=== PATIENT | female | born 1955 | race Caucasian/White ===

== ENCOUNTER 2020-03-10 13:49 | Inpatient (IN) | payer OTHER ==
[~2020-03-10] VITALS: Ht 157.4 cm; Wt 60.4 kg
[2020-03-10 13:59] VITALS: BP 127/74
[2020-03-10 14:58] LABS: BASO % 0.7 % (0.0-1.0); EOS # 0.1 10*3/uL (0.0-0.4); EOS % 5.1 % (1.0-4.0); HEMATOCRIT 28.7 % (37.0-47.0); LYMPH # 0.6 10*3/uL (1.3-4.4); LYMPH % 22.6 % (27.0-41.0); MEAN CELL VOLUME 82.9 fl (81.0-99.0); MEAN CORPUSCULAR HGB 25.4 pg (27.0-31.0); MEAN CORPUSCULAR HGB CONC 30.7 g/dl (33.0-37.0); MEAN PLATELET VOLUME 10.8 fl (9.6-12.3); MONO # 0.3 10*3/uL (0.1-1.0); MONO % 9.5 % (3.0-9.0); NEUT # 1.7 10*3/uL (2.3-7.9); NEUT % 61.7 % (47.0-73.0); PLATELET COUNT AUTOMATED 185 10*3/uL (130-400); RED BLOOD COUNT 3.46 10*6/uL (4.10-5.10); RED CELL DISTRI WIDTH 17.1 % (0-14.5); WHITE BLOOD COUNT 2.7 10*3/uL (4.8-10.8)
[2020-03-10 15:11] LABS: ACT PARTIAL THROMBO TIME 26.8 SECONDS (20.0-32.1); INTERNATIONAL NORM RATIO 1.1 (2.0-3.5)
[2020-03-10 15:14] LABS: ALBUMIN 2.9 gm/dl (3.1-4.5); ALKALINE PHOSPHATASE 135 U/L (45-117); BUN 21 mg/dl (7-24); CHLORIDE 108 mmol/L (98-107); CREATININE 0.73 mg/dL (0.55-1.02); LIPASE 392 U/L (73-393); POTASSIUM 3.5 mmol/L (3.5-5.1); SGOT/AST 33 IU/L (3-35); SGPT/ALT 20 U/L (12-78); SODIUM 138 mmol/L (136-145); TOTAL PROTEIN 8.1 gm/dL (6.4-8.2)
[2020-03-10 15:20] LABS: TROPONIN I < 0.015 ng/ml (<0.045)
[2020-03-10 17:30] VITALS: BP 107/58
[2020-03-10] MEDS ORDERED: IBUPROFEN600 MG PO (17:39)
[2020-03-10] MEDS ORDERED: FLUOXETINE40 MG PO (17:40)
[2020-03-10] MEDS ORDERED: ALDACTONE25 M1 PO (17:43)
[2020-03-10] MEDS ORDERED: PROTONIX TR40 M1 PO (17:44)
[2020-03-10] MEDS ORDERED: AUGMENTIN 875-875 MG PO (17:47)
[2020-03-10] MEDS ORDERED: LOSARTAN POTASS50 M1 PO (17:47)
[2020-03-10] MEDS ORDERED: ROPINIROLE HYDRO3 MG PO (17:53)
[2020-03-10 18:42] LABS: URINE AMPHETAMINES < 1000 (1000ng/ml); URINE BARBITURATES < 200 (200ng/ml); URINE BENZODIAZEPINES < 200 (200ng/ml); URINE CANNABINOIDS (THC) < 50 (50ng/ml); URINE COCAINE < 300 (300ng/ml); URINE METHADONE < 300 (300ng/ml); URINE OPIATES < 300 (300ng/ml)
[2020-03-10 18:45] LABS: URINE PHENCYCLIDINE < 25 (25ng/ml)
[2020-03-10 20:00] VITALS: BP 136/72
[2020-03-11] VITALS (12 sets, daily range): BP systolic 104–179; BP diastolic 54–108
[2020-03-11 15:37] LABS: BASO % 0.3 % (0.0-1.0); EOS % 0.3 % (1.0-4.0); HEMATOCRIT 27.6 % (37.0-47.0); LYMPH # 0.3 10*3/uL (1.3-4.4); LYMPH % 9.2 % (27.0-41.0); MEAN CORPUSCULAR HGB 25.6 pg (27.0-31.0); MEAN CORPUSCULAR HGB CONC 29.7 g/dl (33.0-37.0); MEAN PLATELET VOLUME 10.9 fl (9.6-12.3); MONO % 0.7 % (3.0-9.0); NEUT # 2.7 10*3/uL (2.3-7.9); NEUT % 89.2 % (47.0-73.0); PLATELET COUNT AUTOMATED 130 10*3/uL (130-400); RED CELL DISTRI WIDTH 17.5 % (0-14.5)
[2020-03-11 15:53] LABS: ALBUMIN 2.6 gm/dl (3.1-4.5); ALKALINE PHOSPHATASE 111 U/L (45-117); BUN 17 mg/dl (7-24); CHLORIDE 114 mmol/L (98-107); CREATININE 0.72 mg/dL (0.55-1.02); POTASSIUM 3.7 mmol/L (3.5-5.1); SGOT/AST 27 IU/L (3-35); SGPT/ALT 17 U/L (12-78); SODIUM 142 mmol/L (136-145); TOTAL PROTEIN 7.1 gm/dL (6.4-8.2)
[2020-03-11 16:01] LABS: MEAN CELL VOLUME 86.3 fl (81.0-99.0)
[2020-03-12] VITALS: BP 112/63
[2020-03-12 06:53] LABS: HEMATOCRIT 27.3 % (37.0-47.0); LYMPH # 0.3 10*3/uL (1.3-4.4); LYMPH % 7.4 % (27.0-41.0); MEAN CELL VOLUME 86.9 fl (81.0-99.0); MEAN CORPUSCULAR HGB 25.5 pg (27.0-31.0); MEAN CORPUSCULAR HGB CONC 29.3 g/dl (33.0-37.0); MEAN PLATELET VOLUME 11.3 fl (9.6-12.3); MONO # 0.2 10*3/uL (0.1-1.0); NEUT # 3.1 10*3/uL (2.3-7.9); NEUT % 86.3 % (47.0-73.0); PLATELET COUNT AUTOMATED 139 10*3/uL (130-400); RED BLOOD COUNT 3.14 10*6/uL (4.10-5.10); RED CELL DISTRI WIDTH 17.4 % (0-14.5); WHITE BLOOD COUNT 3.6 10*3/uL (4.8-10.8)
[2020-03-12 07:14] LABS: BUN 21 mg/dl (7-24); CREATININE 0.88 mg/dL (0.55-1.02); POTASSIUM 3.8 mmol/L (3.5-5.1); SODIUM 142 mmol/L (136-145)
[2020-03-12 07:20] LABS: CHLORIDE 113 mmol/L (98-107)
[2020-03-12 08:00] VITALS: BP 96/57
[2020-03-12 12:00] VITALS: BP 101/62
[2020-03-12 16:00] VITALS: BP 101/53
[2020-03-12 20:00] VITALS: BP 109/62
[2020-03-13 08:00] VITALS: BP 106/61
[2020-03-13 12:00] VITALS: BP 110/69
[2020-03-13 12:11] LABS: ACID FAST SPEC PROCESSING Tissue Grinding (.)
[2020-03-13 12:11] LABS: ACID FAST SPEC PROCESSING Tissue Grinding (.)
[2020-03-13] MEDS ORDERED: TRAMADOL HCL50 MG PO (15:40)
[2020-03-13] MEDS ORDERED: ASPIRIN CHILDRE81 MG PO (15:40)
[2020-03-13 16:00] VITALS: BP 145/82
[2020-03-13 20:00] VITALS: BP 121/68
[2020-03-14] VITALS: BP 119/69
[2020-03-14 08:00] VITALS: BP 119/74
[2020-03-14 12:00] VITALS: BP 129/74
[2020-03-14 16:00] VITALS: BP 105/62
[2020-03-14 20:00] VITALS: BP 117/80
[2020-03-15] VITALS: BP 117/77
[2020-03-15 06:07] LABS: BUN 12 mg/dl (7-24); CHLORIDE 108 mmol/L (98-107); CREATININE 0.69 mg/dL (0.55-1.02); POTASSIUM 3.5 mmol/L (3.5-5.1); SODIUM 139 mmol/L (136-145)
[2020-03-15 08:00] VITALS: BP 118/71
[2020-03-15 12:00] VITALS: BP 123/70
[2020-03-15 16:00] VITALS: BP 102/58
[2020-03-15 20:00] VITALS: BP 133/73
[2020-03-16] VITALS: BP 120/65
[2020-03-16 08:00] VITALS: BP 124/70
[2020-03-16 12:00] VITALS: BP 131/75
[2020-03-16 16:00] VITALS: BP 120/87; BP 136/69
[2020-03-16 20:00] VITALS: BP 122/69
[2020-03-17] VITALS: BP 126/72
[2020-03-17 08:00] VITALS: BP 116/68
[2020-03-17 12:00] VITALS: BP 116/83
[2020-03-17 16:00] VITALS: BP 112/66
[2020-03-17 20:00] VITALS: BP 132/76
[2020-03-18] VITALS: BP 135/84
[2020-03-18 08:00] VITALS: BP 126/84
[2020-03-18 12:00] VITALS: BP 122/60
[2020-03-18] MEDS ORDERED: HYDROCODONE-AC1 EAC1 PO (13:02)
[2020-03-18 16:00] VITALS: BP 152/67
== END 2020-03-18 18:46 | disposition other institution (70) | DRG 854 ==
LOC: ED 13:49 → EDHOLD 15:47 → 5E 15:47 → EDHOLD 16:04 → 5E 16:07
PROVIDERS: Emergency Medicine; Podiatrist; Student in an Organized Health Care Education/Training Program; ADMIT Student in an Organized Health Care Education/Training Program
PROC: 0L8W0ZZ Division of Left Foot Tendon, Open Approach (ICD-10-PCS; principal; 2020-03-11)
PROC: 01NG0ZZ Release Tibial Nerve, Open Approach (ICD-10-PCS; principal; 2020-03-11)
PROC: 0QBK0ZZ Excision of Left Fibula, Open Approach (ICD-10-PCS; principal; 2020-03-11)
PROC: 0SS Lower Joints, Reposition (ICD-10-PCS; principal; 2020-03-11)
PROC: 0QBM0ZZ Excision of Left Tarsal, Open Approach (ICD-10-PCS; principal; 2020-03-11)
PROC: 0QBM0ZX Excision of Left Tarsal, Open Approach, Diagnostic (ICD-10-PCS; principal; 2020-03-11)
PROC: 0K8 Muscles, Division (ICD-10-PCS; principal; 2020-03-11)
PROC: 0SS Lower Joints, Reposition (ICD-10-PCS; principal; 2020-03-11)
PROC: 0QBK0ZX Excision of Left Fibula, Open Approach, Diagnostic (ICD-10-PCS; principal; 2020-03-11)
PROC: 0JNR0ZZ Release Left Foot Subcutaneous Tissue and Fascia, Open Approach (ICD-10-PCS; principal; 2020-03-11)
DX: A41.9 Sepsis, unspecified organism (principal); E44.0 Moderate protein-calorie malnutrition; R65.20 Severe sepsis without septic shock; G57.52 Tarsal tunnel syndrome, left lower limb; L97.529 Non-pressure chronic ulcer of other part of left foot with unspecified severity; M24.572 Contracture, left ankle; S91.302A Unspecified open wound, left foot, initial encounter; R73.9 Hyperglycemia, unspecified; E87.8 Other disorders of electrolyte and fluid balance, not elsewhere classified; D64.9 Anemia, unspecified; K21.9 Gastro-esophageal reflux disease without esophagitis; G25.81 Restless legs syndrome; M14.672 Charcot's joint, left ankle and foot; D70.9 Neutropenia, unspecified; B95.61 Methicillin susceptible Staphylococcus aureus infection as the cause of diseases classified elsewhere; B96.89 Other specified bacterial agents as the cause of diseases classified elsewhere; F41.9 Anxiety disorder, unspecified; S82.892A Other fracture of left lower leg, initial encounter for closed fracture; Z03.818 Encounter for observation for suspected exposure to other biological agents ruled out; S93.05XA Dislocation of left ankle joint, initial encounter; X58.XXXA Exposure to other specified factors, initial encounter; Y93.89 Activity, other specified; Y92.89 Other specified places as the place of occurrence of the external cause; Y99.8 Other external cause status; Z80.9 Family history of malignant neoplasm, unspecified; Z82.61 Family history of arthritis; Z88.5 Allergy status to narcotic agent; Z88.8 Allergy status to other drugs, medicaments and biological substances; Z68.24 Body mass index [BMI] 24.0-24.9, adult

== ENCOUNTER 2020-04-01 07:46 | Inpatient (IN) | payer OTHER, MEDICAID ==
[~2020-04-01] VITALS: Ht 157.4 cm; Wt 64.9 kg
[2020-04-01] VITALS (54 sets, daily range): BP systolic 76–113; BP diastolic 40–84
[~2020-04-01 07:46] MED LIST: ALDACTONE25 M1 PO; ASPIRIN CHILDRE81 MG PO; AUGMENTIN 875-875 MG PO; DULCOLAX10 M1 R; FEROSUL325 MG PO; FLUCONAZOLE100 MG PO; FLUOXETINE40 MG PO; HYDROCODONE-AC1 EAC1 PO; IBUPROFEN600 MG PO; LOSARTAN POTASS50 M1 PO; PROTONIX TR40 M1 PO; ROPINIROLE HYDRO3 MG PO; TRAMADOL HCL50 MG PO
[2020-04-01 09:17] LABS: BASO % 0.7 % (0.0-1.0); EOS # 0.3 10*3/uL (0.0-0.4); EOS % 11.3 % (1.0-4.0); HEMATOCRIT 27.8 % (37.0-47.0); LYMPH # 0.7 10*3/uL (1.3-4.4); MEAN CELL VOLUME 82.2 fl (81.0-99.0); MEAN CORPUSCULAR HGB 25.4 pg (27.0-31.0); MEAN CORPUSCULAR HGB CONC 30.9 g/dl (33.0-37.0); MONO # 0.2 10*3/uL (0.1-1.0); MONO % 5.7 % (3.0-9.0); NEUT # 1.8 10*3/uL (2.3-7.9); PLATELET COUNT AUTOMATED 186 10*3/uL (130-400); RED BLOOD COUNT 3.38 10*6/uL (4.10-5.10); RED CELL DISTRI WIDTH 18.1 % (0-14.5)
--- NOTE | 2020-04-01 10:32 | NUR ---
FIRST UNIT OF PACKED RBC INFUSION STARTED.
[2020-04-01 13:36] LABS: HEMATOCRIT 22.1 % (37.0-47.0)
--- NOTE | 2020-04-01 13:40 | NUR ---
Anibal Daniels is aware of H & H results along with Dr Jackson. Patient ordered another unit of blood.
--- NOTE | 2020-04-01 14:03 | NUR ---
PHYSICAL THERAPY Physical therapy order received. PT evaluation attempted. Patient not in room from surgery. Will try PT evaluation at a later time/date. Thank you. Rebeca Carias,PT,DPT.
--- NOTE | 2020-04-01 14:03 | NUR ---
OT NOTE Occupational therapy order received and chart reviewed. Patient not in room at this time. Per nursing, she is still in surgery. Will follow up with patient at a later date for completion of an OT eval. Thank you. Jessie Fay OTR/L
--- NOTE | 2020-04-01 14:45 | NUR ---
A 64, admitted to ICCU, under the services of BRANDEN Rose DO with a diagnosis of HYPOTENSION. Chief complaint is POST-OP LEFT ANKLE. Patient arrived via stretcher from OP/ADMIT. Monitor applied. Initial assessment completed. Vital signs taken and recorded. BRANDEN ROSE DO notified of admission to the unit. Orders received. See assessment for past medical history, medications and allergies. Patient and/or family oriented to unit. [facility] ICCU visitation policy reviewed. Clothing/patient valuable form completed. OSMAR DUMONT
[2020-04-01] MEDS ORDERED: NORCO 5-325 TA1 EACH PO (15:42)
[2020-04-01] MEDS ORDERED: MILK OF MA400 MG/51 PO (15:45)
--- NOTE | 2020-04-01 15:47 | NUR ---
PHYSICAL THERAPY Patient transferred to ICCU for hypovolemic shock following Left TTC fusion. PT requiring new PT orders to complete PT evaluation, due to change in level of care. Recommend new PT orders when patient is appropriate for skilled PT evaluation. Thank you. Rebeca Carias,PT,DPT.
--- NOTE | 2020-04-01 15:49 | NUR ---
OT NOTE Occupational therapy order received. Patient had a left TTC fusion this date and was transferred to the ICCU following a hypovolemic shock. OTR will need new OT orders due to a change in level of care. Please send OT orders when patient is appropriate for an OT evaluation. Thank you. Jessie Fay, OTR/L
[2020-04-01 19:10] LABS: MEAN CORPUSCULAR HGB 27.9 pg (27.0-31.0); MEAN CORPUSCULAR HGB CONC 32.3 g/dl (33.0-37.0); MEAN PLATELET VOLUME 11.5 fl (9.6-12.3); RED BLOOD COUNT 3.59 10*6/uL (4.10-5.10); RED CELL DISTRI WIDTH 16.8 % (0-14.5); WHITE BLOOD COUNT 11.4 10*3/uL (4.8-10.8)
[2020-04-01 19:24] LABS: IRON 231 ug/dL (50-170); TOTAL IRON BINDING CAPACITY 346 ug/dl (250-450)
[2020-04-01 19:39] LABS: MEAN CELL VOLUME 86.4 fl (81.0-99.0); PLATELET COUNT AUTOMATED 273 10*3/uL (130-400)
[2020-04-01 19:54] LABS: TOTAL CELLS COUNTED 100 #CELLS
[2020-04-01 19:55] LABS: BURR CELLS FEW; OVALOCYTES FEW; PLATELET SUFFICIENCY NORMAL (NORMAL)
--- NOTE | 2020-04-01 20:32 | NUR ---
MEDICATED WITH NORCO PER PRN ORDER FOR C/O PAIN.
--- NOTE | 2020-04-01 20:40 | NUR ---
19:50 PT INSTRUCTED ON USE OF INCENTIVE SPIROMETRY. PT DEMONSTRATED PROPER TECHNIQUE. PT ABLE TO ACHIEVE 2 L. PT INSTRUCTED TO USE Q 1-2 HR W/A.
--- NOTE | 2020-04-01 22:10 | NUR ---
PT STATES THAT NORCO IS INEFFECTIVE. DR BENJAMIN NOTIFIED AND NEW ORDER RECEIVED.
--- NOTE | 2020-04-01 22:25 | NUR ---
MEDICATED WITH MORPHINE PER PRN ORDER FOR C/O PAIN.
--- NOTE | 2020-04-01 22:50 | NUR ---
MORPHINE EFFECTIVE FOR PAIN.
[2020-04-02] VITALS (41 sets, daily range): BP systolic 90–122; BP diastolic 44–78
[2020-04-02 06:09] LABS: BASO % 0.2 % (0.0-1.0); HEMATOCRIT 26.4 % (37.0-47.0); LYMPH # 0.7 10*3/uL (1.3-4.4); LYMPH % 10.9 % (27.0-41.0); MEAN CELL VOLUME 86.3 fl (81.0-99.0); MEAN CORPUSCULAR HGB 27.1 pg (27.0-31.0); MEAN CORPUSCULAR HGB CONC 31.4 g/dl (33.0-37.0); MEAN PLATELET VOLUME 11.8 fl (9.6-12.3); MONO # 0.4 10*3/uL (0.1-1.0); MONO % 6.1 % (3.0-9.0); NEUT # 5.3 10*3/uL (2.3-7.9); NEUT % 82.3 % (47.0-73.0); PLATELET COUNT AUTOMATED 232 10*3/uL (130-400); RED BLOOD COUNT 3.06 10*6/uL (4.10-5.10); RED CELL DISTRI WIDTH 16.9 % (0-14.5); WHITE BLOOD COUNT 6.4 10*3/uL (4.8-10.8)
[2020-04-02 06:24] LABS: ALBUMIN 2.6 gm/dl (3.1-4.5); ALKALINE PHOSPHATASE 73 U/L (45-117); BUN 22 mg/dl (7-24); CHLORIDE 104 mmol/L (98-107); CHOLESTEROL 116 mg/dL (<200); CREATININE 1.03 mg/dL (0.55-1.02); POTASSIUM 4.5 mmol/L (3.5-5.1); SGOT/AST 17 IU/L (3-35); SGPT/ALT 13 U/L (12-78); SODIUM 133 mmol/L (136-145); TOTAL PROTEIN 6.3 gm/dL (6.4-8.2); TRIGLYCERIDES 88 mg/dl (<150); VLDL CHOLESTEROL 18 mg/dL (6-40)
[2020-04-02 06:29] LABS: FREE T4 0.86 ng/dl (0.76-1.46); HDL CHOLESTEROL 40 mg/dl (40-60); LDL CHOLESTEROL 58 mg/dL (9-159)
[2020-04-02 06:42] LABS: ACT PARTIAL THROMBO TIME 27.9 SECONDS (20.0-32.1); INTERNATIONAL NORM RATIO 1.1 (2.0-3.5)
[2020-04-02 06:57] LABS: VITAMIN D, 25-HYDROXY 29.1 ng/mL (30-100)
--- NOTE | 2020-04-02 07:59 | NUR ---
PHYSICAL THERAPY Screen recieved, orders recieved before pt transfered to ICU. New orders are required for PT. Thank you. Edu Chiang SPT Rebeca Carias PT
--- NOTE | 2020-04-02 08:04 | NUR ---
OT NOTE Nursing screen received and chart reviewed. Patient admitted to the ICCU following TTC fusion. Please send OT orders when patient is medically appropriate for an OT evaluation. Thank you. Jessie Fay, OTR/L
--- NOTE | 2020-04-02 08:05 | NUR ---
LEVAPHED TITRATED OFF
[2020-04-02 08:08] LABS: HEPATITIS B SURFACE AB Non Reactive (.); HEPATITIS C AB <0.1 (0.0-0.9)
--- NOTE | 2020-04-02 08:10 | NUR ---
PHYSICAL THERAPY Screen received, orders received before pt transfered to ICCU. New orders are required for PT. Thank you. Edu Chiang SPT Rebeca Carias PT
--- NOTE | 2020-04-02 08:24 | NUR ---
PATIENT PRESENTS FROM [facility]. PRECERT IS REQUIRED FOR RETURN.
--- NOTE | 2020-04-02 09:10 | NUR ---
JOSEFINA FOR RIGHT LEG PAIN
--- NOTE | 2020-04-02 09:29 | NUR ---
Denise from [facility] stating patient will require PT and OT with a precert to return, however, she will NOT require another Covid test. She will be quarantined for 14 days.
--- NOTE | 2020-04-02 10:10 | NUR ---
NORCO EFFECTIVE, PT SLEEPING QUIETLY, AOOEARS TO BE PAIN FREE
--- NOTE | 2020-04-02 11:00 | NUR ---
Sand Shoveler in to see patient. She is short term at [facility] and plans to return there. train planner following.
--- NOTE | 2020-04-02 11:20 | NUR ---
Occupational Therapy evaluation completed on ICCU with full evaluation to follow. Recommend occupational therapy per plan of care and SNF upon discharge. Thank you for this referral. Jessie Fay OTR/L
--- NOTE | 2020-04-02 11:25 | NUR ---
PHYSICAL THERAPY Physical Therapy evaluation completed on ICCU with full evaluation to follow. Moderate complexity PT evaluation per chart review and evaluation, [id number]. Recommend physical therapy per plan of care and SNF upon discharge. Thank you for this referral. Rebeca Carias,PT,DPT
--- NOTE | 2020-04-02 12:09 | NUR ---
UP TO RECLINER BY PT PT ENCOURAGED TO CALL FOR HELP TO USE BSC PT INSISTS ON JUST USING A DIAPER, "ITS EASIER NOT TO GET UP " PROPER TOILETING ENCOURAGED
--- NOTE | 2020-04-02 14:22 | NUR ---
PHYSICAL THERAPY Physical therapy treatment complete, 14:22-14:40, Therapeutic activity. Total treatment time: 18 minutes. Patient alert, oriented, and agreeable to skilled PT services. PT, OT, nursing present throughout treatment. Patient performed sit to stand transfer from recliner chair with ModA and FWW with good compliance of NWB status to LEFT LE. Patient unable to hop on Right LE with FWW. Stand pivot transfer on RLE with scooting technique performed to transfer from recliner to sitting EOB. Patient rested sitting EOB for ~2 minutes. Patient assisted with sliding/scoot technique from bed to bedside commode with arm lowered. Patient demonstrated Good transfer technique from bed to BSC with ModA for safety, verbal/tactile cueing. Patient demontrated Fair transfer technique from BSC to return to seated position in bed. Difficulty with bed being slightly higher than BSC, causing an ascending transfer. Increased time required to complete transfer. ModA for safety and to maintain NWB status of Left LE. Patient returned to supine position in bed, comfortable, call aguirre within reach. PT/ Nursing assisted patient to scoot higher in bed. Continued education to not allow any pressure through Left LE, especially when scooting higher in bed. Patient verbalized understanding. Recommend SNF at discharge. Thank you. Rebeca Carias,PT,DPT
--- NOTE | 2020-04-02 14:25 | NUR ---
OT NOTE Patient was agreeable to continued OT treatment this afternoon to maximize safety and independence with ADLs and transfers. Patient seated in the recliner upon arrival. Nursing and physical therapy present for treatment. Patient seated donned back gown with Min A due to multiple monitor lines. Patient performed sit/stand from recliner with Mod A with good carryover of LLE NWB and safe hand placement on WW. Patient performed stand-pivot on the RLE to bedside with Mod A. Patient completed lateral scoot transfer onto drop-arm BSC with good carryover with Mod A and mod cues for sequencing of task. Patient on BSC returned ascending onto bed with fair- completion. Patient requiring Mod A to complete with assist maintaining LLE NWB. Patient requiring Mod A for safety and 2 person assist during transfers due to needing to maintain LLE NWB. Patient would benefit from continued OT treatment to maximize safety and independence with ADLs, transfers, and mobility. Continue with POC to SNF as able. Jessie Fay, OTR/L
--- NOTE | 2020-04-02 15:36 | NUR ---
ULTRAM FOR LEFT LEG PAIN
--- NOTE | 2020-04-02 16:18 | NUR ---
NASAL SPRAY FOR DRY SINUSES/CONGESTION
--- NOTE | 2020-04-02 16:30 | NUR ---
RELIEF WITH NASAL SPRAY
--- NOTE | 2020-04-02 17:15 | NUR ---
JOSEFINA FOR RETURN OF LEG PAIN
--- NOTE | 2020-04-02 18:45 | NUR ---
MORPHINE 1 MG FOR RETURN OF SURGICAL LEG PAIN
--- NOTE | 2020-04-02 18:47 | NUR ---
CHART CHECK COMPLETE.
--- NOTE | 2020-04-02 18:52 | NUR ---
MORPHINE STARTING TO BE EFFECTIVE
--- NOTE | 2020-04-02 19:18 | NUR ---
DR BENJAMIN NOTIFIED OF PT CRYING AND ROCKING IN BED, SAYING THE PAIN IN HER LEG IS UNBEARABLE, WANTS MORPHINE TO HAVE MORE TIME TO WORK
--- NOTE | 2020-04-02 19:25 | NUR ---
DR BENJAMIN CALLED AGAIN TO COME SEE PT SHE IS IN UNBEARABLE PAIN AND CRYING AND ROCKING
--- NOTE | 2020-04-02 19:32 | NUR ---
DR BENJAMIN HERE TO SEE PT. PT CONTINUES TO ROCK, CRY, AND MOAN IN PAIN. VSS.
--- NOTE | 2020-04-02 19:50 | NUR ---
EARLY DOSE OF REQUIP W/ TYLENOL ORDERED, AND ADDITIONAL DOSE OF MORPHINE ORDERED FOR "DEEP EXCRUTIATING PAIN" IN LT LEG 06/13.
--- NOTE | 2020-04-02 19:58 | NUR ---
PT HAS STOPPED CRYING AND ROCKING IN BED. HER BODY APPEARS RELAXED AND HER EYES ARE CLOSED BUT SHE AWAKENS VERY QUICKLY TO MY VOICE AND STATES "IT'S STARTING TO WORK. THANK YOU VERY MUCH. IT'S NOT ALL GONE YET BUT MUCH BETTER." MEDICATIONS EFFECTIVE.
--- NOTE | 2020-04-02 20:41 | NUR ---
AWAKE, ASSISTED PT TO POSITION OF COMFORT. SHE IS VERY CALM, TALKING TO SOMEONE ON HER CELLPHONE AT THIS TIME.
--- NOTE | 2020-04-02 21:00 | NUR ---
AWAKE, MOANING, MOVING AROUND BED AGAIN. STATES PAIN MOVED TO SIDE OF LT LEG, "NOT QUITE BAD BUT JUST COMES ON LIKE A FREIGHT TRAIN." MEDICATED WITH ULTRAM AND RESTORIL ORDERED.
--- NOTE | 2020-04-02 21:52 | NUR ---
PT LAYING ON HER SIDE AGAIN. OCCASIONALLY MOVES & MOANS. DR BENJAMIN CHECKS ON PT'S PAIN LEVEL AND WE DISCUSSED MEDICATIONS GIVEN WITH TIMES AND EFFECTIVENESS. DIRECTED TO CALL IF PT NEEDS FUTHER PAIN MANAGEMENT.
--- NOTE | 2020-04-02 22:00 | NUR ---
RUTH CARE FOR INCONTINENCE OF URINE. PT UPDATED ON PLAN OF CARE. HER BP AT THIS TIME IS 10/55 WITH MAP OF 74.
--- NOTE | 2020-04-02 22:01 | NUR ---
ADDENDUM: BP WAS 108/55 (NOT )
--- NOTE | 2020-04-02 23:00 | NUR ---
PT CALLING OUT AND ASKING IF IT IS TIME FOR ANYTHING. MEDICATED WITH NORCO FOR RECURRING POST OP LEG PAIN AND ZOFRAN IV TO PREVENT NAUSEA.
--- NOTE | 2020-04-02 23:52 | NUR ---
PRN MEDICATIONS EFFECTIVE. PT CALMLY LAYING ON HER LT SIDE, DOZING AT INTERVALS, AWAKENS EASILY TO VERBAL AND TACTILE STIMULI, RESPIRATIONS EVEN AND UNLABORED. WILL CONTINUE TO MONITOR PAIN CONTROL AND VS.
[2020-04-03] VITALS (20 sets, daily range): BP systolic 89–107; BP diastolic 50–64
--- NOTE | 2020-04-03 00:45 | NUR ---
PT CRIED OUT TO SEE IF TIME FOR PAIN MEDICATION. 10/10 PAIN IN KNEE AND OUTER LT LEG DESPITE REPOSITIONING. RUTH CARE AGAIN DONE FOR INCONTINENCE OF URINE. MEDICATED WITH MORPHINE ORDERED.
--- NOTE | 2020-04-03 01:00 | NUR ---
MORPHINE EFFECTIVE. PT LAYING ON HER SIDE, BODY RELAXED, RESPIRATIONS EVEN & UNLABORED. CALL LIGHT IN REACH. BED EXIT ALARM ON.
--- NOTE | 2020-04-03 02:50 | NUR ---
PT AWAKE, CRYING AND MOANING, SITTING UP AND RUBBING AT DIFFERENT AREAS OF HER LT LEG. MEDICATED WITH ULTRAM ORDERED.
--- NOTE | 2020-04-03 03:15 | NUR ---
PT CRYING OUT, UTILIZES CALL LIGHT, ASKING ME TO CALL THE DOCTOR TO GET HER PAIN MEDICATION. DR BENJAMIN NOTIFIED OF PT COMPLAINTS THAT ULTRAM NOT EFFECTIVE AND REQUESTING "PAIN SHOT". DR BENJAMIN NOTIFIED.
--- NOTE | 2020-04-03 03:38 | NUR ---
VS AND ASSESSMENT COMPLETED AT 0330 PRIOR TO ADMINISTRATION OF MORPHINE ORDERED AT 0335. WAS EFFECTIVE WITHIN MINUTES PER PT.
--- NOTE | 2020-04-03 05:30 | NUR ---
JEWETT FOR RECURRING LT LEG POST OP PAIN.
--- NOTE | 2020-04-03 05:43 | NUR ---
RUTH CARE AND UNDERPADS CHANGED FOR MOD AMT OF URINE IN BRIEF. PT HAS DECLINED BATH THIS EVENING DUE TO PAIN CONTROL.
[2020-04-03 06:09] LABS: ALBUMIN 2.3 gm/dl (3.1-4.5); ALKALINE PHOSPHATASE 61 U/L (45-117); BUN 24 mg/dl (7-24); CHLORIDE 108 mmol/L (98-107); CREATININE 0.88 mg/dL (0.55-1.02); POTASSIUM 3.6 mmol/L (3.5-5.1); SGOT/AST 17 IU/L (3-35); SGPT/ALT 12 U/L (12-78); SODIUM 137 mmol/L (136-145); TOTAL PROTEIN 5.7 gm/dL (6.4-8.2)
--- NOTE | 2020-04-03 06:09 | NUR ---
NORCO EFFECTIVE FOR POST OP LEG DISCOMFORT THUS FAR.
[2020-04-03 06:24] LABS: MEAN CELL VOLUME 87.7 fl (81.0-99.0); MEAN CORPUSCULAR HGB CONC 31.9 g/dl (33.0-37.0); MEAN PLATELET VOLUME 12.3 fl (9.6-12.3); RED BLOOD COUNT 2.11 10*6/uL (4.10-5.10); RED CELL DISTRI WIDTH 17.4 % (0-14.5)
[2020-04-03 06:31] LABS: HEMATOCRIT 18.5 % (37.0-47.0)
[2020-04-03 06:32] LABS: PLATELET COUNT AUTOMATED 83 10*3/uL (130-400)
--- NOTE | 2020-04-03 06:34 | NUR ---
DR BENJAMIN NOTIFIED OF HGB 5.9 AND HCT 18.5.
--- NOTE | 2020-04-03 06:37 | NUR ---
DR BENJAMIN TO CALL PODIATRY PHONE TO NOTIFY OF DROP IN HGB AND HCT.
--- NOTE | 2020-04-03 07:12 | NUR ---
4TH RBC STARTED
[2020-04-03 07:19] LABS: BASOPHILS 1 % (0-1); OVALOCYTES FEW; PLATELET SUFFICIENCY LOW (NORMAL); TOTAL CELLS COUNTED 100 #CELLS
--- NOTE | 2020-04-03 07:38 | NUR ---
TOLERATING TRANSFUSION WELL, RELATIVELY PAIN FREE, UNLESS THE LEFT LEG IS TOUCHED, ALERT AND ORIENTED, MEDIPORT SITE ASYMPT, ABD SOFT/NON DISTENDED RIGHT KNEE WITH CHRONIC ARTHRITIC DISCOMFORTS
--- NOTE | 2020-04-03 08:19 | NUR ---
US OF LEFT LEG COMPLETED, PT IN UNBEARABLE PAIN, CRYING, MORPHINE GIVEN
--- NOTE | 2020-04-03 08:30 | NUR ---
PAIN IN LEFT LEG HAS DIMINISHED BUT STILL THERE
--- NOTE | 2020-04-03 08:49 | NUR ---
ADDITIONAL 2 MG MORPHINE
--- NOTE | 2020-04-03 08:50 | NUR ---
OT NOTE Attempted to see pt this A.M. for OT session and upon arrival pt's nurse reported that pt is not appropriate for therapy at this time due to medical decline and pain level of 10/10 in LLE. Will check back with nurse at a later time/date and continue with POC as able. MARCUS Mcdonough/Tanja
--- NOTE | 2020-04-03 08:55 | NUR ---
PHYSICAL THERAPY Per discussion with ICCU Nurse, Patient experienced medical decline not appropriate for treatment at this time. Nurse advised Therapist to hold all treatment this date. Will continue per POC as able. Cristian Carlos ,GUEST SERVICES REPRESENTATIVE
--- NOTE | 2020-04-03 09:00 | NUR ---
THE EXTRA DOES OF MORPHINE HAS MADE PT PAIN FREE NOW
--- NOTE | 2020-04-03 10:13 | NUR ---
ULTRAM FOR THE STARTING OF THE RETURN OF SURGICAL PAIN
--- NOTE | 2020-04-03 11:00 | NUR ---
ULTRAM SOMEWHAT EFFECTIVE
[2020-04-03 11:01] LABS: HEMATOCRIT 21.2 % (37.0-47.0)
[2020-04-03 11:07] LABS: ACID FAST SPEC PROCESSING Tissue Grinding (.)
--- NOTE | 2020-04-03 11:25 | NUR ---
LEARNING TECHNOLOGIES SPECIALIST SPOKE WITH [facility]. THE PATIENT DOES NOT REQUIRE A COVID TO RETURN.
--- NOTE | 2020-04-03 12:00 | NUR ---
5TH UNIT OF RBCS STARTED
--- NOTE | 2020-04-03 12:00 | NUR ---
NO PT/OT TODAY PT IS NOT FEELING WELL
--- NOTE | 2020-04-03 12:00 | NUR ---
Spoke to hospitalist nurse director and ICCU nurse regarding COVID testing. COVID will need to be obtained at this time due to uncertainty of discharge plan.
--- NOTE | 2020-04-03 12:17 | NUR ---
DOCULAX GIVEN FOR CONSTIPATION PER CT
--- NOTE | 2020-04-03 12:23 | NUR ---
JOSEFINA FOR LEFT LEG PAIN
--- NOTE | 2020-04-03 13:17 | NUR ---
NORCO NOT COMPLETELY EFFECTIVE FOR PAIN RELIEF
--- NOTE | 2020-04-03 13:37 | NUR ---
MEDICATED PT PER PRN ORDER WITH MORPHINE FOR C/O LEFT LOWER LEG PAIN THAT RATES 8/10 ON PAIN SCALE.
--- NOTE | 2020-04-03 14:06 | NUR ---
MORPHINE MORE EFFECTIVE FOR PAIN RELIEF
--- NOTE | 2020-04-03 14:10 | NUR ---
5TH UNIT OF RBC HAS BEEN COMPLETED
--- NOTE | 2020-04-03 16:21 | NUR ---
OCCUPATIONAL THERAPY CO-SIGN I approve of the Occupational Therapy notes written above. BOBBY SUAZO, OTR/L
--- NOTE | 2020-04-03 16:30 | NUR ---
DR COUCH BACK IN TO CHECK ON PT, ADVISED OF REPEAT HH
--- NOTE | 2020-04-03 19:45 | NUR ---
PT RESTING IN BED. APPEARS COMFORTABLE. TALKING ON HER CELL PHONE. HER LT LEG REMAINS WRAPPED, THE APPEARANCE AND TEMPERATURE OF HER TOES UNCHANGED FROM LAST TWO NIGHT NIGHTS, CAPILLARY REFILL ALSO UNCHANGED.
--- NOTE | 2020-04-03 20:08 | NUR ---
MORPHINE GIVEN PER PT REQUEST FOR "ANKLE PAIN" 04/13.
--- NOTE | 2020-04-03 20:20 | NUR ---
PT CONTINUES TO TALK ON THE CELL PHONE. HOLDS "THUMBS UP" SIGN WHEN I ASKED IF MEDICATION WAS EFFECTIVE FOR PAIN.
--- NOTE | 2020-04-03 20:45 | NUR ---
PT STILL TALKING ON CELL PHONE. LT LEG REMAINS ELEVATED ON PILLOW. SCD FUNCTIONAL TO RT LEG.
--- NOTE | 2020-04-03 22:00 | NUR ---
ULTRAM AND RESTORIL FOR PAIN AND SLEEP GIVEN AT 2109 EFFECTIVE. PT DOZING. BODY RELAXED. RESPIRATIONS EVEN AND UNLABORED.
[2020-04-04] VITALS: BP 104/60
--- NOTE | 2020-04-04 03:44 | NUR ---
PT SLEEPS WITH EVEN, UNLABORED RESPIRATIONS. BODY RELAXED.
[2020-04-04 04:00] VITALS: BP 103/70
--- NOTE | 2020-04-04 04:19 | NUR ---
PT MEDICATED WITH MORPHINE PER PT REQUEST FOR "ANKLE PAIN" 03/13. VS TAKEN AND RECORDED. DECLINES BATH. PLEASANT, CALM. STATES "OH, I HAVE BEEN SLEEPING SO GOOD. I REALLY NEEDED THAT.". NO CHANGE IN APPEARANCE/SIZE/TEMPERATURE OF LT LEG & TOES. CAST REMAINS INTACT. CALL LIGHT IN REACH.
--- NOTE | 2020-04-04 04:30 | NUR ---
PT STATES RELIEF IN PAIN.... MORPHINE EFFECTIVE.
[2020-04-04 05:58] LABS: BASO % 0.3 % (0.0-1.0); EOS # 0.2 10*3/uL (0.0-0.4); EOS % 6.2 % (1.0-4.0); HEMATOCRIT 25.5 % (37.0-47.0); LYMPH # 0.5 10*3/uL (1.3-4.4); LYMPH % 17.3 % (27.0-41.0); MEAN CELL VOLUME 87.6 fl (81.0-99.0); MEAN CORPUSCULAR HGB 27.8 pg (27.0-31.0); MEAN CORPUSCULAR HGB CONC 31.8 g/dl (33.0-37.0); MEAN PLATELET VOLUME 11.7 fl (9.6-12.3); MONO # 0.3 10*3/uL (0.1-1.0); MONO % 8.2 % (3.0-9.0); NEUT # 2.1 10*3/uL (2.3-7.9); NEUT % 67.7 % (47.0-73.0); PLATELET COUNT AUTOMATED 88 10*3/uL (130-400); RED BLOOD COUNT 2.91 10*6/uL (4.10-5.10); RED CELL DISTRI WIDTH 17.1 % (0-14.5); RETICULOCYTE % 2.05 % (0.50-2.50); WHITE BLOOD COUNT 3.1 10*3/uL (4.8-10.8)
[2020-04-04 06:10] LABS: ALBUMIN 2.4 gm/dl (3.1-4.5); ALKALINE PHOSPHATASE 68 U/L (45-117); BILIRUBIN, DIRECT 0.3 mg/dL (0.0-0.2); BUN 17 mg/dl (7-24); CHLORIDE 107 mmol/L (98-107); POTASSIUM 3.4 mmol/L (3.5-5.1); SGOT/AST 17 IU/L (3-35); SGPT/ALT 10 U/L (12-78); SODIUM 136 mmol/L (136-145); TOTAL PROTEIN 5.9 gm/dL (6.4-8.2)
--- NOTE | 2020-04-04 06:22 | NUR ---
RUTH CARE DONE FOR WET BRIEF. PT VERY CONVERSIVE. HGB THIS AM REMAINS STABLE AT 8.1.
--- NOTE | 2020-04-04 06:33 | NUR ---
PT VOIDED IN NEW BRIEF. RUTH CARE DONE AND NEW BRIEF APPLIED.
--- NOTE | 2020-04-04 07:57 | NUR ---
Drowsy, requesting pain med , states feels like a freight train. scale at 10/10. Morphine and [place] given. then asked 3 different times if pain med was given. difficulty keeping eyes open for conversation. Dressing secure to left foot. elevated on pillows , Toes warm and pink, hemovac secure. Medicated for constipation .
[2020-04-04 08:00] VITALS: BP 104/66
--- NOTE | 2020-04-04 08:53 | NUR ---
Complete bed bath given. brief exchanged.
[2020-04-04 12:00] VITALS: BP 97/61
--- NOTE | 2020-04-04 12:13 | NUR ---
Podiatry in to evaulate. pt. able to wiggle toes on left foot, State dressing will remain for 1-2 weeks . Discussed discharge plan , referred to case mgt. for re-hab placement . Lunch ordered.
--- NOTE | 2020-04-04 13:15 | NUR ---
MORPHINE IV FOR POST OPERATIVE PAIN LEFT FOOT.
--- NOTE | 2020-04-04 14:11 | NUR ---
EYES CLOSED, FACE RELAXED, EARLIER MORPHINE EFFECTIVE.
[2020-04-04 16:00] VITALS: BP 119/70
--- NOTE | 2020-04-04 16:21 | NUR ---
Comfortable at this time. Talkig on her phone.
--- NOTE | 2020-04-04 19:03 | NUR ---
Assisted to bedpan for x-large formed stool. specimen sent to lab. also incontinent of urine, brief saturated. Clarisse care was given . groin is slightly reddened.
[2020-04-04 20:00] VITALS: BP 106/52
--- NOTE | 2020-04-04 20:00 | NUR ---
PT RESTING IN BED WATCHING TV, A&O, PLEASANT AND COOPERATIVE WITH STAFF. RESP NONLABORED. NO ACUTE DISTRESS NOTED. LEFT MEDIPORT PATENT, DRESSING DRY AND INTACT. CAST TO LEFT FOOT PATENT AND HEMOVAC INTACT. NO COMPLAINTS VOICED AT THIS TIME.
--- NOTE | 2020-04-04 21:18 | NUR ---
MEDICATED WITH RESTORIL PER PRN ORDER FOR C/O INSOMNIA.
[2020-04-05] VITALS: BP 115/70
--- NOTE | 2020-04-05 00:05 | NUR ---
MORPHINE GIVEN. PATIENT IS IN PAIN IN HER LEFT LEG RATING IT A 5/10. PAIN IS DESCRIBED A SHARP ACHE. WILL CONTINURE TO MONITOR AND REASSESS. CALL LIGHT WITHIN REACH.
[2020-04-05 04:00] VITALS: BP 101/58; BP 107/61
--- NOTE | 2020-04-05 05:27 | NUR ---
NORCO AND MORPHINE GIVEN PER PT REQUEST FOR LEFT LEG PAIN. PAIN WAS RATED A 7/10 AND DESCRIBED A SHARP PAIN THAT RADIATED UP HER LEG. CALL LIGHT WITHIN REACH.
--- NOTE | 2020-04-05 06:15 | NUR ---
MEDICATIONS EFFECTIVE. PATIENT RESTING COMFORTABLY IN BED AT THIS TIME. PAIN IS RATED 2/10 AND TOLERABLE. CALL LIGHT WITHIN REACH.
[2020-04-05 06:24] LABS: BASO % 0.8 % (0.0-1.0); EOS # 0.2 10*3/uL (0.0-0.4); EOS % 8.2 % (1.0-4.0); LYMPH # 0.6 10*3/uL (1.3-4.4); LYMPH % 26.2 % (27.0-41.0); MEAN CELL VOLUME 90.3 fl (81.0-99.0); MEAN CORPUSCULAR HGB 28.5 pg (27.0-31.0); MEAN CORPUSCULAR HGB CONC 31.6 g/dl (33.0-37.0); MEAN PLATELET VOLUME 12.5 fl (9.6-12.3); MONO # 0.2 10*3/uL (0.1-1.0); MONO % 7.8 % (3.0-9.0); NEUT # 1.4 10*3/uL (2.3-7.9); NEUT % 56.6 % (47.0-73.0); PLATELET COUNT AUTOMATED 91 10*3/uL (130-400); RED BLOOD COUNT 2.77 10*6/uL (4.10-5.10); RED CELL DISTRI WIDTH 16.9 % (0-14.5); WHITE BLOOD COUNT 2.4 10*3/uL (4.8-10.8)
[2020-04-05 06:53] LABS: ALBUMIN 2.2 gm/dl (3.1-4.5); ALKALINE PHOSPHATASE 72 U/L (45-117); BUN 13 mg/dl (7-24); CHLORIDE 106 mmol/L (98-107); POTASSIUM 3.4 mmol/L (3.5-5.1); SGOT/AST 7 IU/L (3-35); SGPT/ALT 10 U/L (12-78); SODIUM 136 mmol/L (136-145); TOTAL PROTEIN 5.7 gm/dL (6.4-8.2)
[2020-04-05 08:00] VITALS: BP 106/65
--- NOTE | 2020-04-05 08:00 | NUR ---
ALERT AND ORIENTED, PLEASANT, PAIN LEVEL IS MINIMAL PAIN DRSG INATCT TO LEFT LEG WITH NO SIGNS OF DRAINAGE, TOES PINK AND WARM AND MOVE EQUALLY, LEFT LEG ELEVATED ON 2 PILLOWS, MEDIPORT LEFT CHEST SECURE
--- NOTE | 2020-04-05 10:34 | NUR ---
MORPHINE FOR UNBEARABLE PAIN
--- NOTE | 2020-04-05 10:48 | NUR ---
MORPHINE EFFECTIVE, PT TALKING ON PHONE STATES SHE IS COMFORTABLE
[2020-04-05 12:00] VITALS: BP 118/66
--- NOTE | 2020-04-05 13:57 | NUR ---
MORPHINE FOR LEFT LEG PAIN
--- NOTE | 2020-04-05 14:30 | NUR ---
morphine effective, pt sleeping
[2020-04-05 16:00] VITALS: BP 112/56
--- NOTE | 2020-04-05 18:26 | NUR ---
MORPHINE FOR 8/10 LEFT LEG PAIN
[2020-04-05 20:00] VITALS: BP 107/68
--- NOTE | 2020-04-05 22:35 | NUR ---
MORPHINE GIVEN PER PT REQUET FOR LEFT LEG PAIN. PATIENT RATES PAIN A 8/10 AND DESCRIBES IT A STABBING PAIN. PATIENT REPOSITIONED AT THIS TIME FOR MORE COMFORT. CALL LIGHT WITHIN REACH.
--- NOTE | 2020-04-05 23:15 | NUR ---
MORPHINE EFFECTIVE. PATIENT RESTING COMFORTABLY AT THIS TIME. PATIENT AROUSES EASILY TO VERBAL STIMULI AND SAYS PAIN IS TOLERABLE AT THIS TIME. CALL LIGHT WITHIN REACH.
[2020-04-06] VITALS: BP 114/66
--- NOTE | 2020-04-06 06:00 | NUR ---
MORPHINE GIVEN PER PT REQUEST. PATIENT RATES LEFT LEG PAIN A 6/10 PATIENT STATES IT IS A THROBBING SHARP PAIN AFTER REPOSITIONING AND GETTING THE PATIENT CHANGED. CALL LIGHT WITHIN REACH. WILL CONTINUE TO MONITOR AND REASSESS.
[2020-04-06 06:18] LABS: BASO % 0.4 % (0.0-1.0); EOS # 0.2 10*3/uL (0.0-0.4); HEMATOCRIT 23.1 % (37.0-47.0); LYMPH # 0.6 10*3/uL (1.3-4.4); LYMPH % 24.6 % (27.0-41.0); MEAN CELL VOLUME 89.2 fl (81.0-99.0); MEAN CORPUSCULAR HGB 28.6 pg (27.0-31.0); MEAN PLATELET VOLUME 11.9 fl (9.6-12.3); MONO # 0.3 10*3/uL (0.1-1.0); MONO % 10.4 % (3.0-9.0); NEUT # 1.3 10*3/uL (2.3-7.9); NEUT % 54.2 % (47.0-73.0); PLATELET COUNT AUTOMATED 91 10*3/uL (130-400); RED BLOOD COUNT 2.59 10*6/uL (4.10-5.10); RED CELL DISTRI WIDTH 17.2 % (0-14.5); WHITE BLOOD COUNT 2.4 10*3/uL (4.8-10.8)
[2020-04-06 06:27] LABS: BUN 11 mg/dl (7-24); CHLORIDE 105 mmol/L (98-107); POTASSIUM 3.5 mmol/L (3.5-5.1); SODIUM 137 mmol/L (136-145)
--- NOTE | 2020-04-06 06:46 | NUR ---
MORPHINE EFFECTIVE. PATIENT RESTING COMFORTABLY IN BED AT THIS TIME. PATIENT STATES SHE FEELS MUCH BETTER AND RATES PAIN A 3 OR 4/10. CALL LIGHT WITHIN REACH.
--- NOTE | 2020-04-06 07:06 | NUR ---
SPOKE WITH DR. PHILLIP. PATIENT MORNING LABS REVIEWED. ORDERS RECEIVED.
--- NOTE | 2020-04-06 07:54 | NUR ---
PATIENT GIVEN NORCO AT THIS TIME DUE COMPLAINT OF PAIN OF 8/10 TO LEFT ANKLE AND LEFT KNEE.
[2020-04-06 08:00] VITALS: BP 102/59
--- NOTE | 2020-04-06 08:26 | NUR ---
Updated clinicals faxed to [facility] for review. Contacted PT/OT department to discuss. They stated patient did have a decline in her condition but they will continue to treat her once she becomes more stable.
--- NOTE | 2020-04-06 08:35 | NUR ---
Sullivan effective, patient resting with eyes closed, no further complaints of pain.
--- NOTE | 2020-04-06 08:50 | NUR ---
PHYSICAL THERAPY Patient seen this am 1:1 for therapy visit and was resting supine in bed upon therapist arrival. Patient identified by name / and presnets with L LE romain wrap cast. Patient is NWB on L LE and was joined by OT assitant for observation only this session, voicing 8/10 L foot pain. Patient reviewed her NWB status and transfers supine to sit EOB with ROBLES Zee. Patient tolerated static EOB sit x several minutes to collect herself, then completed several sit to stand transfers, MIN A, use of wh walker standing support. Patient tolerated approx 30 seconds static stand secondary to quick onset of fatigue. Patient also performed low pivot transfer from EOB to BSC, dmeonstrating increased difficulty while sliding to R side. Patient returned to supine in bed and remained with call light, tray table, cell phone and bed alarm for safety. Will continue per POC as tolerated, total treatment time 14 minutes. Cristian Carlos, LASER SET UP OPERATOR
--- NOTE | 2020-04-06 09:10 | NUR ---
OT NOTE Pt was seen this A.M. 1:1 for 25 minute OT session. Upon arrival pt was supine in bed. Pt identified by name and and had complaints of 8/10 LLE pain. Prior to start of treatment pt was able to verbalize weight bearing precuations of NWB to LLE. Pt transferred supine to sit EOB with Naveed for assist with UB. While sitting EOB pt donned R sock with SBA. Sit to stand completed from bed level with Naveed and use of w/w for UE support. Challenged pt's static standing tolerance needed for increased I in self care tasks and functional transfers. Pt was able to tolerate aprox 45 seconds before sitting due to fatigue. Throughout static stand pt was 100% compliant with NWB to LLE. Therapist then placed a drop arm bedside commode in the room and provided education on sequencing for low pivot to the bedside commode, pt verbalized understanding. Pt then completed low pivot from the EOB <> bedside commode with Naveed while maintaining 100% NWB to LLE. Pt then completed sit to supine transfer with Naveed and was repositioned with maxA X 2. Pt was left supine in bed with call light in hand, tray table in place, bed alarm activated for safety, and ICCU nurse notified. COntinue with rec D/C plan to SNF. MARCUS Mcdonough/Tanja
--- NOTE | 2020-04-06 11:28 | NUR ---
PT TRANSFERED TO 528 VIA BED AT THIS TIME. REPORT GIVEN TO CHRISTY BRICEÑO.
--- NOTE | 2020-04-06 11:43 | NUR ---
ASSUMED CARE OF PT, PT AA&OX3, VITALS STABLE, NO VOICED COMPLAINTS AT THIS TIME
--- NOTE | 2020-04-06 11:55 | NUR ---
ODD SHOE EXAMINER FAXED ADDITIONAL CLINICALS TO [facility]. ODD SHOE EXAMINER ASKED TO HAVE PRECERT STARTED.
[2020-04-06 12:00] VITALS: BP 106/60
--- NOTE | 2020-04-06 14:29 | NUR ---
OT NOTE Pt was seen this P.M. 1:1 for second OT session consisting of 18 minutes. Upon arrival pt was supine in bed. Pt identified by name and and had complaints of 7/10 LLE pain. Pt transferred supine to sit EOB with CGA and use of bed rail for UE support. While sitting EOB pt completed BUE towel exercises over all planes of motion (LUE to point of tolerance) for 1 X 10 to increase and restore maximum functional strength. After completing ther ex pt completed one sit to stand from bed level with Naveed and use of w/w for UE support. Challenged pt's static standing tolerance needed for increased I in self care tasks and functional transfers, pt was able to tolerate aprox 45 seconds before sitting due to fatigue and pain in her LLE. Pt transferred back into bed sit to supine with CGA. There she was left with call light in hand, tray table in place, and bed alarm activated for safety, Continue with rec D/C plan to SNF. MARCUS Mcdonough/Tanja
--- NOTE | 2020-04-06 15:37 | NUR ---
REPORT RECEIVED FROM SAMEER BRICEÑO. IN TO ROOM. PATIENT AWAKE ALERT AND ORIENTED SITTING UP IN BED. PT COMPLAINS OF PAIN AT THIS TIME RATED AT A 10. PRN NORCO ADMINISTERED. AFTER TAKING MEDICATION, PT REQUESTS MORPHINE. EDUCATION PROVIDED ON PRN PAIN MEDICATIONS, AND IF PAIN MEDICATION IS NOT EFFECTIVE THAT MORPHINE CAN BE GIVEN. RESPIRATIONS ARE EASY AND REGULAR. NO SOB NOTED ON ROOM AIR PT IS ABLE TO REPOSITION SELF AND IS ENCOURAGED TO DO SO. BED IN LOWEST LOCKED POSITION AND CALL LIGHT WITHIN REACH. WILL CONTINUE TO MONITOR.
[2020-04-06 16:00] VITALS: BP 112/72
--- NOTE | 2020-04-06 18:46 | NUR ---
PATIENT C/O PAIN 8/10 LEFT LEG, MEDICATED WITH 4MG OF MORPHINE ORDERED PRN, UPDATED WHITEBOARD WITH NEXT TIME MEDICATION IS AVAILABLE.
--- NOTE | 2020-04-06 19:45 | NUR ---
MS GIVEN EARLIER APPARENTLY EFFECTIVE.
[2020-04-06 20:00] VITALS: BP 105/65
--- NOTE | 2020-04-06 22:09 | NUR ---
MEDICATED WITH NORCO FOR C/O GENERALIZED DISCOMFORT RATED A 9/10.
--- NOTE | 2020-04-06 22:50 | NUR ---
NORCO SOMEWHAT EFFECTIVE.
--- NOTE | 2020-04-06 23:16 | NUR ---
MEDICATED WITH MS FOR C/O PAIN.
[2020-04-07] VITALS (12 sets, daily range): BP systolic 104–119; BP diastolic 59–88
--- NOTE | 2020-04-07 00:15 | NUR ---
RESTING IN BED WITH EYES CLOSED; MS EFFECTIVE.
--- NOTE | 2020-04-07 02:10 | NUR ---
MEDICATED WITH NORCO FOR C/O PAIN.
--- NOTE | 2020-04-07 03:10 | NUR ---
RESTING IN BED; VOICES NO C/O. PAIN MEDICATION APPARENTLY EFFECTIVE; WILL CONTINUE TO MONITOR. CALL LIGHT WITHIN REACH.
[2020-04-07 07:25] LABS: HEMATOCRIT 21.9 % (37.0-47.0); MEAN CELL VOLUME 90.9 fl (81.0-99.0); MEAN PLATELET VOLUME 11.2 fl (9.6-12.3); PLATELET COUNT AUTOMATED 88 10*3/uL (130-400); RED BLOOD COUNT 2.41 10*6/uL (4.10-5.10); RED CELL DISTRI WIDTH 17.2 % (0-14.5)
[2020-04-07 07:30] LABS: WHITE BLOOD COUNT 1.9 10*3/uL (4.8-10.8)
[2020-04-07 07:39] LABS: BUN 12 mg/dl (7-24); CHLORIDE 106 mmol/L (98-107); CREATININE 0.61 mg/dL (0.55-1.02); POTASSIUM 3.6 mmol/L (3.5-5.1); SODIUM 138 mmol/L (136-145)
[2020-04-07 08:00] LABS: BURR CELLS FEW; OVALOCYTES FEW; PLATELET SUFFICIENCY LOW (NORMAL); TOTAL CELLS COUNTED 100 #CELLS
--- NOTE | 2020-04-07 09:00 | NUR ---
Mainframe Analyst in to see patient. She is short term at [facility] and plans to return there. COVID negative, awaiting precert. When medically stable and precert is received she will be discharged to [facility]. demand planner following.
--- NOTE | 2020-04-07 09:00 | NUR ---
PATIENT REPORTS PAIN 7/10 TO LEFT LEG, KNEE, AND HEEL. ADMINISTERED PO PRN NORCO AT THIS TIME.
--- NOTE | 2020-04-07 09:50 | NUR ---
PAIN MEDICINE EFFECTIVE PER PATIENT
--- NOTE | 2020-04-07 10:10 | NUR ---
PHYSICAL THERAPY Patient seen this am 1;1 for therapy visit and was supine in bed upon theraist arrival. Patient identified by name / and presented with L LE romain wrap cast. Patient reports 6-7/10 L foot/ankle pain and is NWB on L LE. OT assistant professor of dietetics was also present for observation this session as patient transfers supine to sit EOB with CGA. Patient needed a few mintes to collect her thoughts then completed several sit to stand transfers, CGA, with use of wh walker standing support. Patient also performed low pivot transfer from EOB to bedside chair with arm rest removed, CGA, demontrating 100% compliance with NWB status L LE. Patient remained in chair, semi reclined with L LE elevated on pillow for comfort, call light, tray table telephone and body alarm for safety. Will continue per POC as tolerartd, total treatment time 13 minutes. Cristian Carlos, AUXILIARY POWERPLANT OPERATOR
--- NOTE | 2020-04-07 10:31 | NUR ---
OT NOTE Pt was seen this A.M. 1:1 for 24 minute OT session. Upon arrival pt was supine in bed. Pt identified by name and and had complaints of 6.5/10 LLE pain. Pt transferred supine to sit EOB with CGA. While seated pt was educated on LB dressing for dressing LLE first for increased I. While sitting EOB pt donned pants with Naveed for assist with pants over her LLE cast then donned R sock with SBA. Sit to stand completed from bed level with Naveed and use of w/w for UE support. Challenged pt's static standing tolerance needed for increased I in self care tasks and functional transfers. pt was able to tolerate aprox 45 seconds at a time before sitting due to fatigue. Pt was then provided with a recliner that has a removable arm rest. Pt was again educated on low pivot technique which pt was able to recall. Pt then completed low pivot from the EOB to the recliner with removable arm rest with CGA. Throughout low pivot pt was 100% compliant with NWB to LLE. Once seated in the recliner pt completed BUE towel exercises over all planes of motion (LUE to pint of tolerance) for 1 X 10 to increase and restore maximum functional use. Pt was left sitting upright in the recliner with call light in hand, tray table in place, and body alarm activated for safety. Continue with rec D/C plan to SNF. MARCUS Mcdonough/Tanja
--- NOTE | 2020-04-07 11:22 | NUR ---
MEDICATED WITH PRN IV MORPHINE FOR LEFT LEG PAIN.
--- NOTE | 2020-04-07 11:47 | NUR ---
PREPARING PATIENT FOR TRANFUSION OF 1 UNIT PRBC'S, SEE VS'S FLOW FOR PRE-TRANSFUSION VITAL SIGNS, SEE TAR FOR TRANSFUSION DETAILS.
--- NOTE | 2020-04-07 12:08 | NUR ---
UNIT #1 OF 1 OF PRBC'S INITIATED. DISCUSSED SIGNS AND SYMPTOMS OF A TRANSFUSION REACTION, PATIENT VERBALIZES UNDER STANDING.
--- NOTE | 2020-04-07 12:22 | NUR ---
PRN IV MORPHINE EFFECTIVE, PER PATIENT.
--- NOTE | 2020-04-07 14:00 | NUR ---
PATIENTS PRECERT IS BACK. PATIENT CAN ADMIT TO [facility] TODAY IF MEDICALLY STABLE. JEWEL BEARING GRINDER NOTIFIED JOSE-NAVARRO HOSPITALIST COORDINTOR FOR THE DAY.
--- NOTE | 2020-04-07 15:39 | NUR ---
MEDICATED WITH PRN IV MORPHINE FOR LEFT FOOT AND KNEE PAIN.
--- NOTE | 2020-04-07 16:22 | NUR ---
PRN IV MORPHINE EFFECTIVE, PER PATIENT.
--- NOTE | 2020-04-07 19:30 | NUR ---
24 HOUR CHART CHECK COMPLETE
[2020-04-07 20:11] LABS: BASO % 0.7 % (0.0-1.0); EOS # 0.3 10*3/uL (0.0-0.4); EOS % 12.2 % (1.0-4.0); HEMATOCRIT 27.4 % (37.0-47.0); LYMPH # 0.7 10*3/uL (1.3-4.4); LYMPH % 24.1 % (27.0-41.0); MEAN CELL VOLUME 89.5 fl (81.0-99.0); MEAN CORPUSCULAR HGB 28.4 pg (27.0-31.0); MEAN CORPUSCULAR HGB CONC 31.8 g/dl (33.0-37.0); MEAN PLATELET VOLUME 11.7 fl (9.6-12.3); MONO # 0.2 10*3/uL (0.1-1.0); MONO % 7.8 % (3.0-9.0); NEUT # 1.5 10*3/uL (2.3-7.9); NEUT % 54.8 % (47.0-73.0); RED BLOOD COUNT 3.06 10*6/uL (4.10-5.10); RED CELL DISTRI WIDTH 16.8 % (0-14.5); WHITE BLOOD COUNT 2.7 10*3/uL (4.8-10.8)
[2020-04-07 20:12] LABS: PLATELET COUNT AUTOMATED 128 10*3/uL (130-400)
--- NOTE | 2020-04-07 20:35 | NUR ---
PATIENT ASSESSMENT COMPLETED AT THIS TIME WITHOUT INCIDENT. PATIENT TRANSFERRED FROM RECLINER TO BED WITHOUT INCIDENT WITH WALKER. PRN MORPHINE GIVEN IV AT THIS TIME FOR 9/10 PAIN TO PATIENT LEFT ANKLE AND KNEE. DONNIE-VAC DRAIN EMPTIED AT THIS TIME FOR 10CC OF BLOODY DRAINAGE SECURED TO PATIENT DRESSING. CALL LIGHT WITHIN REACH, WILL CONTINUE TO MONITOR.
--- NOTE | 2020-04-07 21:20 | NUR ---
PER PATIENT PAIN WAS NOW A 5/10 AFTER PRN MORPHINE IV WAS GIVEN. A&O X3, CALL LIGHT WITHIN REACH, WILL CONTINUE TO MONITOR.
--- NOTE | 2020-04-07 21:57 | NUR ---
PRN NORCO GIVEN PO AT THIS TIME FOR PATIENT COMPLAINT OF 6/10 PAIN IN HER LEFT ANKLE AND KNEE. PRN RESTORIL GIVEN AT THIS TIME ALSO AT PATIENT REQUEST FOR SLEEP AIDE. A&O X3, CALL LIGHT WITHIN REACH, WILL CONTINUE TO MONITOR.
--- NOTE | 2020-04-07 22:34 | NUR ---
PATIENT STATED THAT PAIN WAS NOW A 5/10 AFTER PRN NORCO WAS GIVEN PO. A&O X3, CALL LIGHT WITHIN REACH, WILL CONTINUE TO MONITOR.
[2020-04-08] VITALS: BP 111/68
--- NOTE | 2020-04-08 05:33 | NUR ---
PRN IV MORPHINE GIVEN AT THIS TIME FOR 8/10 PAIN IN PATIENT LEFT ANKLE AND KNEE. A&O X3, CALL LIGHT WITHIN REACH, WILL CONTINUE TO MONITOR.
--- NOTE | 2020-04-08 06:15 | NUR ---
PATIENT STATED THAT HER LEFT ANKLE AND KNEE PAIN WAS NOW A 5/10 AFTER PRN IV MORPHINE WAS GIVEN. A&O X3, CALL LIGHT WITHIN REACH, WILL CONTINUE TO MONITOR.
[2020-04-08 06:52] LABS: BASO % 0.4 % (0.0-1.0); EOS # 0.3 10*3/uL (0.0-0.4); EOS % 12.1 % (1.0-4.0); LYMPH # 0.6 10*3/uL (1.3-4.4); MEAN CELL VOLUME 89.7 fl (81.0-99.0); MEAN CORPUSCULAR HGB CONC 32.3 g/dl (33.0-37.0); MEAN PLATELET VOLUME 11.2 fl (9.6-12.3); MONO # 0.2 10*3/uL (0.1-1.0); MONO % 8.8 % (3.0-9.0); NEUT # 1.5 10*3/uL (2.3-7.9); NEUT % 56.3 % (47.0-73.0); PLATELET COUNT AUTOMATED 111 10*3/uL (130-400); RED CELL DISTRI WIDTH 17.1 % (0-14.5); WHITE BLOOD COUNT 2.7 10*3/uL (4.8-10.8)
[2020-04-08 07:30] LABS: CHLORIDE 103 mmol/L (98-107); SODIUM 136 mmol/L (136-145)
[2020-04-08 07:34] LABS: BUN 12 mg/dl (7-24)
--- NOTE | 2020-04-08 07:58 | NUR ---
MEDICATED WITH PRN PO NORCO FOR LEFT FOOT PAIN.
[2020-04-08 08:00] VITALS: BP 107/59
--- NOTE | 2020-04-08 08:04 | NUR ---
PRECERT IS BACK. PATIENT CAN ADMIT TO [facility] IF MEDICALLY STABLE. MECHANICAL TECH FAXED UPDATES TO [facility].
--- NOTE | 2020-04-08 08:50 | NUR ---
PRN PO NORCO SOMEWHAT EFFECTIVE, PER PATIENT.
--- NOTE | 2020-04-08 10:21 | NUR ---
PATIENT HAD EMESIS AFTER BREAKFAST, STATES FEELS BETTER NOW, BUT FERROUS SULFATE PILLS MAKE HER NAUSEATED.
[2020-04-08] MEDS ORDERED: NORCO 5-325 TA1 EACH PO (11:06)
[2020-04-08] MEDS ORDERED: VITAMIN D3125 MC1 PO (11:06)
[2020-04-08] MEDS ORDERED: RESTORIL15 MG PO (11:07)
--- NOTE | 2020-04-08 11:15 | NUR ---
PHYSICAL THERAPY Patient seen this am 1:1 for therapy visit and was supine in bed upon therapist arrival. Patient identified by name / and was very pleasant, voicing no new c/o's at this time. OT project construction assistant manager was also present this morning for observation only as patient presents with L foot / ankle cast and remains NWB on L LE. Patient transfers supine to sit EOB with SBA, tolerating several minutes static EOB sit, then completed low pivot transfer from EOB to bedside chair with armrest removed for improved safety / performance, SBA x 1. Patient remained in chair with call light, tray table, telephone and body alarm. Will continue per POC as tolerated, total treatment time 14 minutes. Cristian Carlos, CONSTRUCTION MGR
--- NOTE | 2020-04-08 11:23 | NUR ---
INDUSTRIAL PSYCHOLOGY PROFESSOR NOTIFIED OF THE PATIENT DISCHARGE. INDUSTRIAL PSYCHOLOGY PROFESSOR SPOKE WITH JAMAAL CULP WHO SPOKE WITH NAVARRO SOW. INDUSTRIAL PSYCHOLOGY PROFESSOR SPOKE WITH [facility] TO ARRANGE A 2PM. INDUSTRIAL PSYCHOLOGY PROFESSOR NOTIFIED JAMAAL CULP, PATIENTS SISTER QUINCY, AND [facility] OF TRANSPORT TIME. INDUSTRIAL PSYCHOLOGY PROFESSOR WILL FAX DEMOGRAPHICS TO [facility] AND DISCHARGE ORDERS TO [facility].
--- NOTE | 2020-04-08 11:27 | NUR ---
OT NOTE Pt was seen this A.M. 1:1 for 24 minute OT session. Upon arrival pt was supine in bed. Pt identified by name and and had complaints of 7/10 LLE pain. Pt transferred supine to sit EOB with CGA and use of bed rail for UE support. While sitting EOB pt donned pants with Naveed for assist over bulk of cast, doffed and donned new shirt with SBA, and donned R sock with SBA. Extra time required due to slow rate of performance. Pt completed low pivot from the EOB to the recliner with removable arm rest with CGA for safety. There she was left with call light in hand, tray table in place, and body alarm activated for safety. Continue with rec D/C plan to SNF. MARCUS Mcdonough/Tanja
--- NOTE | 2020-04-08 11:34 | NUR ---
HEMOVAC DRAIN WAS REMOVED BY PODIATRY IN PREPARATION FOR DISCHARGE TO [facility]
[2020-04-08 12:00] VITALS: BP 105/62
--- NOTE | 2020-04-08 12:09 | NUR ---
MEDICATED WITH PRN IV MORPHINE FOR LEFT ANKLE PAIN.
--- NOTE | 2020-04-08 12:28 | NUR ---
PREPARING PATIENT FOR DISCHARGE TO [facility] AT 2PM VIA [facility]. MEDIPORT ACCESS REMOVED.
--- NOTE | 2020-04-08 13:00 | NUR ---
PRN IV MORPHINE EFFECTIVE, PER PATIENT.
--- NOTE | 2020-04-08 14:08 | NUR ---
PATIENT DISCHARGED TO [facility] BY [facility]ANCE SERV[facility] AT THIS TIME.
--- NOTE | 2020-04-08 14:28 | NUR ---
REPORT CALLED TO RECEIVING NURSE AT [facility]
--- NOTE | 2020-04-09 08:04 | NUR ---
PHYSICAL THERAPY CO-SIGN I approve of the Physical Therapy notes written above. Kaley Cardozo PT
--- NOTE | 2020-04-09 11:57 | NUR ---
OCCUPATIONAL THERAPY CO-SIGN I approve of the Occupational Therapy notes written above. BOBBY SUAZO, OTR/L
== END 2020-04-08 15:03 | disposition other institution (70) | DRG 853 ==
LOC: SDC 07:46 → 5E 10:47 → ICCU 10:47 → 5E 04-06 11:29
PROVIDERS: Family Medicine; Hospitalist; Internal Medicine; Nurse Anesthetist, Certified Registered; Podiatrist; ADMIT Internal Medicine
PROC: 0QSM04Z Reposition Left Tarsal with Internal Fixation Device, Open Approach (ICD-10-PCS; principal; 2020-04-01)
PROC: 0QBH0ZZ Excision of Left Tibia, Open Approach (ICD-10-PCS; principal; 2020-04-01)
PROC: 0SGG07Z Fusion of Left Ankle Joint with Autologous Tissue Substitute, Open Approach (ICD-10-PCS; principal; 2020-04-01)
PROC: 0SGJ07Z Fusion of Left Tarsal Joint with Autologous Tissue Substitute, Open Approach (ICD-10-PCS; principal; 2020-04-01)
PROC: 0QBK0ZZ Excision of Left Fibula, Open Approach (ICD-10-PCS; principal; 2020-04-01)
PROC: 0SGG04Z Fusion of Left Ankle Joint with Internal Fixation Device, Open Approach (ICD-10-PCS; principal; 2020-04-01)
PROC: 30233N1 Transfusion of Nonautologous Red Blood Cells into Peripheral Vein, Percutaneous Approach (ICD-10-PCS; principal; 2020-04-01)
PROC: 0SGJ04Z Fusion of Left Tarsal Joint with Internal Fixation Device, Open Approach (ICD-10-PCS; principal; 2020-04-01)
PROC: 0SP Lower Joints, Removal (ICD-10-PCS; principal; 2020-04-01)
DX: A41.9 Sepsis, unspecified organism (principal); T81.19XA Other postprocedural shock, initial encounter; E43 Unspecified severe protein-calorie malnutrition; D61.818 Other pancytopenia; D62 Acute posthemorrhagic anemia; M86.8X7 Other osteomyelitis, ankle and foot; T84.84XA Pain due to internal orthopedic prosthetic devices, implants and grafts, initial encounter; M86.172 Other acute osteomyelitis, left ankle and foot; M19.072 Primary osteoarthritis, left ankle and foot; S91.302A Unspecified open wound, left foot, initial encounter; F32.9 Major depressive disorder, single episode, unspecified; G25.81 Restless legs syndrome; F41.9 Anxiety disorder, unspecified; K21.9 Gastro-esophageal reflux disease without esophagitis; S92.002A Unspecified fracture of left calcaneus, initial encounter for closed fracture; E87.8 Other disorders of electrolyte and fluid balance, not elsewhere classified; R73.9 Hyperglycemia, unspecified; I95.89 Other hypotension; Y83.8 Other surgical procedures as the cause of abnormal reaction of the patient, or of later complication, without mention of misadventure at the time of the procedure; Y92.238 Other place in hospital as the place of occurrence of the external cause; E87.6 Hypokalemia; E55.9 Vitamin D deficiency, unspecified; X58.XXXA Exposure to other specified factors, initial encounter; Y93.89 Activity, other specified; Y92.89 Other specified places as the place of occurrence of the external cause; Y99.8 Other external cause status; Z82.61 Family history of arthritis; Z79.82 Long term (current) use of aspirin; Z79.899 Other long term (current) drug therapy; Z88.5 Allergy status to narcotic agent; Z03.818 Encounter for observation for suspected exposure to other biological agents ruled out; Z68.26 Body mass index [BMI] 26.0-26.9, adult

== ENCOUNTER 2020-04-16 15:27 | Emergency (ER) | payer OTHER, MEDICAID ==
[~2020-04-16] VITALS: Wt 55.3 kg
[~2020-04-16 15:27] MED LIST changes: +MILK OF MA400 MG/51 PO; +NORCO 5-325 TA1 EACH PO; +RESTORIL15 MG PO; +VITAMIN D3125 MC1 PO
[2020-04-16 16:27] LABS: BASO % 0.6 % (0.0-1.0); EOS # 0.2 10*3/uL (0.0-0.4); EOS % 6.3 % (1.0-4.0); HEMATOCRIT 27.4 % (37.0-47.0); LYMPH # 0.5 10*3/uL (1.3-4.4); LYMPH % 14.5 % (27.0-41.0); MEAN CELL VOLUME 91.3 fl (81.0-99.0); MEAN CORPUSCULAR HGB 28.7 pg (27.0-31.0); MEAN CORPUSCULAR HGB CONC 31.4 g/dl (33.0-37.0); MEAN PLATELET VOLUME 10.7 fl (9.6-12.3); MONO # 0.3 10*3/uL (0.1-1.0); MONO % 8.5 % (3.0-9.0); NEUT # 2.2 10*3/uL (2.3-7.9); NEUT % 69.8 % (47.0-73.0); PLATELET COUNT AUTOMATED 136 10*3/uL (130-400); WHITE BLOOD COUNT 3.2 10*3/uL (4.8-10.8)
[2020-04-16 16:37] LABS: ACT PARTIAL THROMBO TIME 30.4 SECONDS (20.0-32.1); INTERNATIONAL NORM RATIO 1.1 (2.0-3.5)
[2020-04-16 16:42] LABS: ALBUMIN 2.6 gm/dl (3.1-4.5); ALKALINE PHOSPHATASE 128 U/L (45-117); BUN 15 mg/dl (7-24); CHLORIDE 104 mmol/L (98-107); POTASSIUM 4.1 mmol/L (3.5-5.1); SGOT/AST 21 IU/L (3-35); SGPT/ALT 16 U/L (12-78); SODIUM 135 mmol/L (136-145); TOTAL PROTEIN 6.7 gm/dL (6.4-8.2)
== END 2020-04-16 20:06 | disposition home or self-care (01) ==
LOC: ED 15:27
PROVIDERS: Emergency Medicine
DX: G89.18 Other acute postprocedural pain (principal); K21.9 Gastro-esophageal reflux disease without esophagitis; M86.9 Osteomyelitis, unspecified; R79.1 Abnormal coagulation profile; Z88.6 Allergy status to analgesic agent; Z79.899 Other long term (current) drug therapy

== ENCOUNTER 2020-04-19 15:27 | Observation (INO) | payer OTHER, MEDICAID ==
[~2020-04-19] VITALS: Ht 160 cm; Wt 63.5 kg
[2020-04-19 15:28] VITALS: BP 114/64
[2020-04-19 16:00] VITALS: BP 129/71
[2020-04-19 16:02] LABS: BASO % 0.3 % (0.0-1.0); EOS # 0.1 10*3/uL (0.0-0.4); EOS % 2.9 % (1.0-4.0); LYMPH # 0.4 10*3/uL (1.3-4.4); LYMPH % 13.7 % (27.0-41.0); MEAN CELL VOLUME 89.7 fl (81.0-99.0); MEAN CORPUSCULAR HGB 27.9 pg (27.0-31.0); MEAN CORPUSCULAR HGB CONC 31.2 g/dl (33.0-37.0); MEAN PLATELET VOLUME 10.5 fl (9.6-12.3); MONO # 0.3 10*3/uL (0.1-1.0); MONO % 9.1 % (3.0-9.0); NEUT # 2.3 10*3/uL (2.3-7.9); NEUT % 73.7 % (47.0-73.0); PLATELET COUNT AUTOMATED 141 10*3/uL (130-400); RED CELL DISTRI WIDTH 16.3 % (0-14.5); WHITE BLOOD COUNT 3.1 10*3/uL (4.8-10.8)
[2020-04-19 16:13] LABS: BUN 12 mg/dl (7-24); CHLORIDE 104 mmol/L (98-107); CREATININE 0.69 mg/dL (0.55-1.02); POTASSIUM 3.7 mmol/L (3.5-5.1); SODIUM 136 mmol/L (136-145)
[2020-04-19] MEDS ORDERED: ALLERGY RELIE15.8 ML NAS (18:17)
[2020-04-19] MEDS ORDERED: DICLOFENAC SODI75 M3 PO (18:18)
[2020-04-19 18:30] VITALS: BP 132/49
[2020-04-19 18:50] VITALS: BP 133/82
[2020-04-19 20:00] VITALS: BP 129/71
[2020-04-20] VITALS: BP 117/66
[2020-04-20 06:38] LABS: HEMATOCRIT 24.6 % (37.0-47.0); MEAN CELL VOLUME 90.8 fl (81.0-99.0); MEAN CORPUSCULAR HGB CONC 30.9 g/dl (33.0-37.0); MEAN PLATELET VOLUME 10.8 fl (9.6-12.3); PLATELET COUNT AUTOMATED 118 10*3/uL (130-400); RED BLOOD COUNT 2.71 10*6/uL (4.10-5.10); RED CELL DISTRI WIDTH 16.3 % (0-14.5)
[2020-04-20 06:41] LABS: WHITE BLOOD COUNT 1.6 10*3/uL (4.8-10.8)
[2020-04-20 07:03] LABS: ALBUMIN 2.2 gm/dl (3.1-4.5); ALKALINE PHOSPHATASE 118 U/L (45-117); BUN 12 mg/dl (7-24); CHLORIDE 105 mmol/L (98-107); CREATININE 0.63 mg/dL (0.55-1.02); POTASSIUM 3.7 mmol/L (3.5-5.1); SGOT/AST 15 IU/L (3-35); SGPT/ALT 13 U/L (12-78); SODIUM 134 mmol/L (136-145)
[2020-04-20 07:07] LABS: BASOPHILS 1 % (0-1); PLATELET SUFFICIENCY LOW (NORMAL); ROULEAUX SLIGHT; TOTAL CELLS COUNTED 100 #CELLS
[2020-04-20 08:00] VITALS: BP 116/77
[2020-04-20 12:00] VITALS: BP 126/84
[2020-04-20 16:00] VITALS: BP 106/66
[2020-04-20 20:00] VITALS: BP 79/57
[2020-04-21] VITALS (8 sets, daily range): BP systolic 90–129; BP diastolic 50–67
[2020-04-21 06:20] LABS: EOS # 0.1 10*3/uL (0.0-0.4); EOS % 5.3 % (1.0-4.0); HEMATOCRIT 23.3 % (37.0-47.0); LYMPH # 0.4 10*3/uL (1.3-4.4); LYMPH % 20.7 % (27.0-41.0); MEAN CELL VOLUME 91.4 fl (81.0-99.0); MEAN CORPUSCULAR HGB 27.8 pg (27.0-31.0); MEAN CORPUSCULAR HGB CONC 30.5 g/dl (33.0-37.0); MEAN PLATELET VOLUME 10.8 fl (9.6-12.3); MONO # 0.2 10*3/uL (0.1-1.0); MONO % 9.6 % (3.0-9.0); NEUT # 1.3 10*3/uL (2.3-7.9); NEUT % 62.9 % (47.0-73.0); PLATELET COUNT AUTOMATED 141 10*3/uL (130-400); RED BLOOD COUNT 2.55 10*6/uL (4.10-5.10); RED CELL DISTRI WIDTH 16.6 % (0-14.5); WHITE BLOOD COUNT 2.1 10*3/uL (4.8-10.8)
[2020-04-22] VITALS: BP 123/75
[2020-04-22 06:23] LABS: BASO % 0.8 % (0.0-1.0); EOS # 0.1 10*3/uL (0.0-0.4); LYMPH # 0.5 10*3/uL (1.3-4.4); LYMPH % 17.2 % (27.0-41.0); MEAN CELL VOLUME 90.2 fl (81.0-99.0); MEAN CORPUSCULAR HGB 27.4 pg (27.0-31.0); MEAN CORPUSCULAR HGB CONC 30.4 g/dl (33.0-37.0); MEAN PLATELET VOLUME 10.3 fl (9.6-12.3); MONO # 0.2 10*3/uL (0.1-1.0); NEUT # 1.8 10*3/uL (2.3-7.9); PLATELET COUNT AUTOMATED 152 10*3/uL (130-400); RED BLOOD COUNT 2.66 10*6/uL (4.10-5.10); RED CELL DISTRI WIDTH 16.3 % (0-14.5); WHITE BLOOD COUNT 2.6 10*3/uL (4.8-10.8)
[2020-04-22 08:00] VITALS: BP 102/76
[2020-04-22 12:00] VITALS: BP 117/74
[2020-04-22 16:00] VITALS: BP 124/72
[2020-04-22 20:00] VITALS: BP 117/80
[2020-04-23] VITALS: BP 131/75
[2020-04-23 08:00] VITALS: BP 116/72
[2020-04-23 12:00] VITALS: BP 127/61
[2020-04-23] MEDS ORDERED: NORCO 5-325 TA1 EACH PO (13:39)
[2020-04-23 16:00] VITALS: BP 108/57
[2020-04-23 20:00] VITALS: BP 113/78
[2020-04-24] VITALS: BP 109/58
[2020-04-24 08:00] VITALS: BP 124/68
[2020-04-24] MEDS ORDERED: OXYCODONE HCL5 MG PO (09:53)
== END 2020-04-24 10:15 | disposition other institution (70) ==
LOC: ED 15:27 → EDHOLD 17:31 → ED 17:31 → 5E 17:31 → EDHOLD 18:19 → 5E 18:19
PROVIDERS: Emergency Medicine; Internal Medicine; ADMIT Emergency Medicine
DX: G89.18 Other acute postprocedural pain (principal); K21.9 Gastro-esophageal reflux disease without esophagitis; M19.90 Unspecified osteoarthritis, unspecified site; M25.572 Pain in left ankle and joints of left foot; M79.672 Pain in left foot; E83.51 Hypocalcemia; D72.819 Decreased white blood cell count, unspecified; R00.0 Tachycardia, unspecified; F41.9 Anxiety disorder, unspecified; F32.9 Major depressive disorder, single episode, unspecified; E55.9 Vitamin D deficiency, unspecified; G47.00 Insomnia, unspecified

== ENCOUNTER 2020-10-08 07:05 | Inpatient (IN) | payer OTHER, MEDICAID ==
[~2020-10-08] VITALS: Ht 157.5 cm; Wt 63.3 kg
[~2020-10-08 07:05] MED LIST changes: +ALLERGY RELIE15.8 ML NAS; +DICLOFENAC SODI75 M3 PO; +OXYCODONE HCL5 MG PO
[2020-10-08 19:00] VITALS: BP 133/65
[2020-10-08 19:07] VITALS: BP 133/65
[2020-10-08 20:34] LABS: BASO % 0.6 % (0.0-1.0); EOS # 0.1 10*3/uL (0.0-0.4); EOS % 1.9 % (1.0-4.0); HEMATOCRIT 28.5 % (37.0-47.0); LYMPH # 0.6 10*3/uL (1.3-4.4); LYMPH % 17.7 % (27.0-41.0); MEAN CORPUSCULAR HGB 24.1 pg (27.0-31.0); MEAN CORPUSCULAR HGB CONC 29.8 g/dl (33.0-37.0); MEAN PLATELET VOLUME 10.8 fl (9.6-12.3); MONO # 0.2 10*3/uL (0.1-1.0); MONO % 7.5 % (3.0-9.0); NEUT # 2.3 10*3/uL (2.3-7.9); PLATELET COUNT AUTOMATED 213 10*3/uL (130-400); RED BLOOD COUNT 3.52 10*6/uL (4.10-5.10); RED CELL DISTRI WIDTH 22.8 % (0-14.5); WHITE BLOOD COUNT 3.2 10*3/uL (4.8-10.8)
[2020-10-08 20:39] LABS: ACT PARTIAL THROMBO TIME 27.9 SECONDS (20.0-32.1); INTERNATIONAL NORM RATIO 1.1 (2.0-3.5)
[2020-10-08 20:42] LABS: ALBUMIN 2.4 gm/dl (3.1-4.5); ALKALINE PHOSPHATASE 134 U/L (45-117); BUN 14 mg/dl (7-24); CHLORIDE 107 mmol/L (98-107); CREATININE 0.67 mg/dL (0.55-1.02); POTASSIUM 4.1 mmol/L (3.5-5.1); SGOT/AST 13 IU/L (3-35); SGPT/ALT 7 U/L (12-78); SODIUM 137 mmol/L (136-145); TOTAL PROTEIN 7.2 gm/dL (6.4-8.2)
[2020-10-09] VITALS (12 sets, daily range): BP systolic 122–147; BP diastolic 59–110
[2020-10-10 07:01] LABS: BASO % 0.4 % (0.0-1.0); LYMPH # 0.4 10*3/uL (1.3-4.4); LYMPH % 12.8 % (27.0-41.0); MEAN CORPUSCULAR HGB CONC 29.7 g/dl (33.0-37.0); MEAN PLATELET VOLUME 10.5 fl (9.6-12.3); MONO # 0.2 10*3/uL (0.1-1.0); MONO % 7.8 % (3.0-9.0); NEUT # 2.2 10*3/uL (2.3-7.9); NEUT % 78.3 % (47.0-73.0); PLATELET COUNT AUTOMATED 201 10*3/uL (130-400); RED BLOOD COUNT 3.58 10*6/uL (4.10-5.10); RED CELL DISTRI WIDTH 22.5 % (0-14.5); WHITE BLOOD COUNT 2.8 10*3/uL (4.8-10.8)
[2020-10-10 07:26] LABS: CHLORIDE 104 mmol/L (98-107); SODIUM 136 mmol/L (136-145)
[2020-10-10 07:37] LABS: ALBUMIN 2.4 gm/dl (3.1-4.5); ALKALINE PHOSPHATASE 129 U/L (45-117); BUN 16 mg/dl (7-24); CREATININE 0.66 mg/dL (0.55-1.02); SGOT/AST 20 IU/L (3-35); SGPT/ALT 8 U/L (12-78); TOTAL PROTEIN 7.4 gm/dL (6.4-8.2)
[2020-10-10 08:00] VITALS: BP 118/72
[2020-10-10 16:00] VITALS: BP 110/70
[2020-10-10 20:00] VITALS: BP 121/74
[2020-10-11] VITALS: BP 132/71
[2020-10-11 07:27] LABS: BASO % 0.5 % (0.0-1.0); EOS # 0.1 10*3/uL (0.0-0.4); EOS % 2.4 % (1.0-4.0); HEMATOCRIT 25.4 % (37.0-47.0); LYMPH # 0.5 10*3/uL (1.3-4.4); LYMPH % 23.8 % (27.0-41.0); MEAN CELL VOLUME 82.5 fl (81.0-99.0); MEAN CORPUSCULAR HGB 24.7 pg (27.0-31.0); MEAN CORPUSCULAR HGB CONC 29.9 g/dl (33.0-37.0); MEAN PLATELET VOLUME 10.9 fl (9.6-12.3); MONO # 0.2 10*3/uL (0.1-1.0); MONO % 11.2 % (3.0-9.0); NEUT # 1.3 10*3/uL (2.3-7.9); NEUT % 61.6 % (47.0-73.0); PLATELET COUNT AUTOMATED 154 10*3/uL (130-400); RED BLOOD COUNT 3.08 10*6/uL (4.10-5.10); RED CELL DISTRI WIDTH 22.8 % (0-14.5); WHITE BLOOD COUNT 2.1 10*3/uL (4.8-10.8)
[2020-10-11 08:00] VITALS: BP 113/68
[2020-10-11 11:06] LABS: ACID FAST SPEC PROCESSING Tissue Grinding (.)
[2020-10-11 11:06] LABS: ACID FAST SPEC PROCESSING Tissue Grinding (.)
[2020-10-11 11:06] LABS: ACID FAST SPEC PROCESSING Tissue Grinding (.)
[2020-10-11 16:00] VITALS: BP 127/82
[2020-10-11 20:00] VITALS: BP 124/68
[2020-10-12] VITALS: BP 115/64; BP 123/72
[2020-10-12 06:46] LABS: BASO % 0.5 % (0.0-1.0); EOS # 0.1 10*3/uL (0.0-0.4); EOS % 3.2 % (1.0-4.0); HEMATOCRIT 25.3 % (37.0-47.0); LYMPH # 0.5 10*3/uL (1.3-4.4); LYMPH % 20.6 % (27.0-41.0); MEAN CELL VOLUME 82.7 fl (81.0-99.0); MEAN CORPUSCULAR HGB 25.2 pg (27.0-31.0); MEAN CORPUSCULAR HGB CONC 30.4 g/dl (33.0-37.0); MEAN PLATELET VOLUME 10.3 fl (9.6-12.3); MONO # 0.2 10*3/uL (0.1-1.0); MONO % 10.6 % (3.0-9.0); NEUT # 1.4 10*3/uL (2.3-7.9); NEUT % 64.6 % (47.0-73.0); PLATELET COUNT AUTOMATED 154 10*3/uL (130-400); RED BLOOD COUNT 3.06 10*6/uL (4.10-5.10); RED CELL DISTRI WIDTH 22.8 % (0-14.5); WHITE BLOOD COUNT 2.2 10*3/uL (4.8-10.8)
[2020-10-12 08:00] VITALS: BP 115/64
[2020-10-12 12:00] VITALS: BP 115/61
[2020-10-12] MEDS ORDERED: CEFAZOLIN1 G1 IV (15:30)
[2020-10-12 16:00] VITALS: BP 114/66
[2020-10-13] VITALS: BP 119/62
[2020-10-13 06:21] LABS: BASO % 0.5 % (0.0-1.0); EOS # 0.1 10*3/uL (0.0-0.4); EOS % 5.8 % (1.0-4.0); HEMATOCRIT 26.2 % (37.0-47.0); LYMPH # 0.6 10*3/uL (1.3-4.4); LYMPH % 27.1 % (27.0-41.0); MEAN CELL VOLUME 82.4 fl (81.0-99.0); MEAN CORPUSCULAR HGB 24.8 pg (27.0-31.0); MEAN CORPUSCULAR HGB CONC 30.2 g/dl (33.0-37.0); MEAN PLATELET VOLUME 11.5 fl (9.6-12.3); MONO # 0.2 10*3/uL (0.1-1.0); MONO % 9.7 % (3.0-9.0); NEUT # 1.2 10*3/uL (2.3-7.9); NEUT % 56.4 % (47.0-73.0); PLATELET COUNT AUTOMATED 163 10*3/uL (130-400); RED BLOOD COUNT 3.18 10*6/uL (4.10-5.10); RED CELL DISTRI WIDTH 22.6 % (0-14.5); WHITE BLOOD COUNT 2.1 10*3/uL (4.8-10.8)
[2020-10-13 06:33] LABS: BUN 14 mg/dl (7-24); CHLORIDE 105 mmol/L (98-107); CREATININE 0.55 mg/dL (0.55-1.02); SODIUM 138 mmol/L (136-145)
[2020-10-13 08:00] VITALS: BP 137/71
[2020-10-13 16:08] VITALS: BP 137/71
[2020-10-13 20:13] VITALS: BP 118/70
[2020-10-14 08:00] VITALS: BP 123/69
[2020-10-14 09:23] LABS: BASO % 1.1 % (0.0-1.0); EOS # 0.2 10*3/uL (0.0-0.4); EOS % 10.1 % (1.0-4.0); HEMATOCRIT 25.3 % (37.0-47.0); LYMPH # 0.5 10*3/uL (1.3-4.4); LYMPH % 29.2 % (27.0-41.0); MEAN CELL VOLUME 83.8 fl (81.0-99.0); MEAN CORPUSCULAR HGB 24.5 pg (27.0-31.0); MEAN CORPUSCULAR HGB CONC 29.2 g/dl (33.0-37.0); MEAN PLATELET VOLUME 10.9 fl (9.6-12.3); MONO # 0.2 10*3/uL (0.1-1.0); MONO % 12.4 % (3.0-9.0); NEUT # 0.8 10*3/uL (2.3-7.9); NEUT % 46.1 % (47.0-73.0); PLATELET COUNT AUTOMATED 143 10*3/uL (130-400); RED BLOOD COUNT 3.02 10*6/uL (4.10-5.10); RED CELL DISTRI WIDTH 22.6 % (0-14.5)
[2020-10-14 09:29] LABS: WHITE BLOOD COUNT 1.8 10*3/uL (4.8-10.8)
[2020-10-14 09:43] LABS: BASOPHILS 1 % (0-1); PLATELET SUFFICIENCY NORMAL (NORMAL); SCHISTOCYTES FEW; TOTAL CELLS COUNTED 100 #CELLS
[2020-10-14 09:44] LABS: OVALOCYTES FEW
[2020-10-14] MEDS ORDERED: VANCOMYCIN1 GM/2002 IV (11:12)
[2020-10-14 12:00] VITALS: BP 107/65
[2020-10-14 16:00] VITALS: BP 104/63
[2020-10-14 20:00] VITALS: BP 127/68
[2020-10-15] VITALS: BP 107/62
[2020-10-15 08:00] VITALS: BP 128/77
[2020-10-15] MEDS ORDERED: HYDROCODONE-AC1 EAC1 PO (11:13)
[2020-10-15] MEDS ORDERED: ENOXAPARIN40 MG/0.2 SC (11:16)
[2020-11-22 11:04] LABS: ACID FAST CULTURE Negative (.)
[2020-11-22 11:04] LABS: ACID FAST CULTURE Negative (.)
[2020-11-22 11:04] LABS: ACID FAST CULTURE Negative (.)
== END 2020-10-15 15:02 | disposition home or self-care (01) | DRG 477 ==
LOC: 5E 07:05
PROVIDERS: Internal Medicine; Podiatrist; Podiatrist Foot & Ankle Surgery; Student in an Organized Health Care Education/Training Program; ADMIT Student in an Organized Health Care Education/Training Program; ATTEND Student in an Organized Health Care Education/Training Program
PROC: 0QBK0ZX Excision of Left Fibula, Open Approach, Diagnostic (ICD-10-PCS; principal; 2020-10-08)
PROC: 0QPK04Z Removal of Internal Fixation Device from Left Fibula, Open Approach (ICD-10-PCS; 2020-10-08)
PROC: 0QBK0ZZ Excision of Left Fibula, Open Approach (ICD-10-PCS; 2020-10-08)
PROC: 0QBM0ZZ Excision of Left Tarsal, Open Approach (ICD-10-PCS; 2020-10-08)
PROC: 0QPM04Z Removal of Internal Fixation Device from Left Tarsal, Open Approach (ICD-10-PCS; 2020-10-08)
PROC: 0QBM0ZX Excision of Left Tarsal, Open Approach, Diagnostic (ICD-10-PCS; 2020-10-08)
DX: T84.84XA Pain due to internal orthopedic prosthetic devices, implants and grafts, initial encounter (principal); E43 Unspecified severe protein-calorie malnutrition; M86.8X6 Other osteomyelitis, lower leg; T84.625A Infection and inflammatory reaction due to internal fixation device of left fibula, initial encounter; K21.9 Gastro-esophageal reflux disease without esophagitis; F32.9 Major depressive disorder, single episode, unspecified; M14.672 Charcot's joint, left ankle and foot; M19.90 Unspecified osteoarthritis, unspecified site; I73.9 Peripheral vascular disease, unspecified; R79.82 Elevated C-reactive protein (CRP); D72.819 Decreased white blood cell count, unspecified; R74.8 Abnormal levels of other serum enzymes; Y83.8 Other surgical procedures as the cause of abnormal reaction of the patient, or of later complication, without mention of misadventure at the time of the procedure; M20.42 Other hammer toe(s) (acquired), left foot; M20.41 Other hammer toe(s) (acquired), right foot; D64.9 Anemia, unspecified; M19.072 Primary osteoarthritis, left ankle and foot; B95.7 Other staphylococcus as the cause of diseases classified elsewhere; G25.81 Restless legs syndrome; F41.9 Anxiety disorder, unspecified; G47.00 Insomnia, unspecified; Z88.6 Allergy status to analgesic agent; Z79.82 Long term (current) use of aspirin; Z79.899 Other long term (current) drug therapy; Y92.89 Other specified places as the place of occurrence of the external cause; Z68.25 Body mass index [BMI] 25.0-25.9, adult